=== PATIENT | female | born 1985 | race Asian ===

== ENCOUNTER 2017-02-19 06:15 | Observation (INO) | payer OTHER ==
[~2017-02-19] VITALS: Ht 162.6 cm; Wt 58.1 kg
[2017-02-19] MEDS ORDERED: FERR325E14 PO (06:52)
[2017-02-19 07:10] VITALS: BP 96/75
[2017-02-19] MEDS ORDERED: TERBUTALINE 1 MG/ML VIAL SUBQ SCH (07:40)
[2017-02-19] MEDS ORDERED: TERBUTALINE 1 MG/ML VIAL SUBQ ONE ×2 (07:53→08:30)
== END 2017-02-19 09:51 | disposition home or self-care (01) ==
LOC: MLD 06:15
PROVIDERS: ADMIT Obstetrics & Gynecology; ATTEND Obstetrics & Gynecology
DX: O26.899 Other specified pregnancy related conditions, unspecified trimester (principal); R10.9 Unspecified abdominal pain; Z3A.00 Weeks of gestation of pregnancy not specified
CPT/HCPCS: 96372; G0378; J3105

== ENCOUNTER 2017-02-21 03:00 | Inpatient (IN) | payer OTHER ==
[~2017-02-21] VITALS: Ht 162.6 cm; Wt 58.1 kg
[~2017-02-21 03:00] MED LIST: FERROUS SULFAT325 MG PO
[2017-02-21] MEDS ORDERED: NALBUPHINE HYDROCHLORIDE 10 MG/ML VIAL IVP PRN (03:40)
[2017-02-21] MEDS ORDERED: AMPICILLIN 2,000 MG in NACL 0.9% MINI-BAG PLUS 100 ML IV SCH (03:40)
[2017-02-21] MEDS ORDERED: OXYTOCIN 10 UNITS/ML VIAL IM SCH (03:40)
[2017-02-21] MEDS ORDERED: OXYTOCIN 20 UNITS/LR PREMIX 1,000 ML IV SCH (03:40)
[2017-02-21] MEDS ORDERED: LACTATED RINGERS 1,000 ML IV SCH (03:40)
[2017-02-21] MEDS ORDERED: PROMETHAZINE 25 MG/ML VIAL IVP PRN (03:40)
[2017-02-21] MEDS ORDERED: AMPICILLIN 2,000 MG VIAL ONE (03:58)
[2017-02-21] MEDS ORDERED: ROPIVACAINE 0.2%/NS PREMIX 250 ML EPI ONE (04:07)
[2017-02-21] MEDS ORDERED: ROPIVACAINE 0.2%/NS PREMIX 250 ML EPI SCH (04:25)
[2017-02-21] MEDS ORDERED: OXYTOCIN 20 UNITS/LR PREMIX 1,000 ML IV ONE (05:26)
--- NOTE | 2017-02-21 07:40 | NUR ---
PATIENT HAS BEEN SCREENED AND CATEGORIZED LOW NUTRITION RISK. PATIENT WILL BE SEEN WITHIN 7 DAYS OF ADMISSION. 02/27/[address]
[2017-02-21] MEDS ORDERED: AMPICILLIN 1,000 MG in NACL 0.9% MINI-BAG PLUS 50 ML IV SCH (08:00)
[2017-02-21] MEDS ORDERED: OXYTOCIN 10 UNITS/ML VIAL ONE (13:14)
[2017-02-21] MEDS ORDERED: oxyCODONE/APAP 5/325 MG 1 TAB TAB ONE (17:40)
[2017-02-21] MEDS ORDERED: METHYLERGONOVINE 0.2 MG/ML AMP IM PRN (21:50)
[2017-02-21] MEDS ORDERED: HYDROcodone/APAP 5/325 MG 1 TAB TAB PO PRN (21:50)
[2017-02-21] MEDS ORDERED: MEASLES, MUMPS, AND RUBELLA 1 VIAL SQVAC PRN (21:50)
[2017-02-21] MEDS ORDERED: oxyCODONE/APAP 5/325 MG 1 TAB TAB PO PRN (21:50)
[2017-02-21] MEDS ORDERED: BENZOCAINE/MENTHOL 20%-0.5% 60 GM CAN TP PRN (21:50)
[2017-02-21] MEDS ORDERED: OXYTOCIN 10 UNITS/ML VIAL IM PRN (21:50)
[2017-02-21] MEDS ORDERED: WITCH HAZEL 40 PAD PACKAGE TP PRN (21:50)
[2017-02-21] MEDS ORDERED: TEMAZEPAM 15 MG CAP PO PRN (21:50)
[2017-02-21] MEDS: IBUPROFEN 600 MG TAB PO PRN (22:20)
[2017-02-22] MEDS: IBUPROFEN 600 MG TAB PO PRN ×3 (06:43→22:51)
[2017-02-22] MEDS ORDERED: DOCUSATE SOD/SENNA 50/8.6 MG 1 TAB PO SCH (21:00)
[2017-02-23] MEDS: IBUPROFEN 600 MG TAB PO PRN (09:04)
== END 2017-02-23 16:45 | disposition home or self-care (01) | DRG 560 ==
LOC: MFCC 03:00
PROVIDERS: ADMIT Obstetrics & Gynecology; ATTEND Obstetrics & Gynecology
PROC: 10D07Z6 Extraction of Products of Conception, Vacuum, Via Natural or Artificial Opening (ICD-10-PCS; principal; 2017-02-21)
PROC: 0W8NXZZ Division of Female Perineum, External Approach (ICD-10-PCS; 2017-02-21)
PROC: 00HU33Z Insertion of Infusion Device into Spinal Canal, Percutaneous Approach (ICD-10-PCS; 2017-02-21)
PROC: 3E0R3CZ (ICD-10-PCS; 2017-02-21)
PROC: 3E0234Z Introduction of Serum, Toxoid and Vaccine into Muscle, Percutaneous Approach (ICD-10-PCS; 2017-02-22)
DX: O69.81X0 Labor and delivery complicated by cord around neck, without compression, not applicable or unspecified (principal); Z23 Encounter for immunization; Z37.0 Single live birth; Z3A.38 38 weeks gestation of pregnancy